=== PATIENT | female | born 1945 | race Caucasian/White ===

== ENCOUNTER 2017-01-24 10:23 | Inpatient (IN) | payer MEDICARE, OTHER ==
[~2017-01-24] VITALS: Ht 168.9 cm; Wt 98.2 kg
[2017-01-24] VITALS (12 sets, daily range): BP systolic 137–169; BP diastolic 61–83; PULSE 65–82; RESP 12–18; O2SAT 90–100
--- NOTE | 2017-01-24 07:33 | PCM.HPANE ---
Patient Data Date of Service: Jan 24, 2017 Surgeon Admitting Provider: Attending Provider:Serge Keys MD Primary Care Physician:Reanna Fung MD Other Provider:Miguel Ortiz Anesthesia Reason for Visit Right Knee Arthritis Ht/WT & BMI Height (Feet): 5 Height (Inches): 6.00 Weight (Kilograms): 99.790 Body Mass Index 35.00 Allergies Coded Allergies: Tetracyclines (Verified Allergy, Severe, rash, 01/24/17) methylprednisolone (Verified Allergy, Unknown, Palpatations, 01/24/17) Uncoded Allergies: MASTISOL (Adverse Reaction, Severe, skin sloughing- quite severe per patient, 01/18/17) ALSO ALCOHOL,GUM MASTIC INCLUDED IN MASTISOL Past Anesthesia History Anesthesia History: Denies:: Abnormal Airway, Anesthesia Reactions, Difficult Intubation, Fam Anesthesia Reaction, Fam Malignant Hypertherm, Malignant Hyperthermia Diabetes History Hx Diabetes?: No MRSA MRSA: No Medications Hypertension Medication: Yes (DIOVAN, hydrolazine) Home Meds Incl Beta Luigi: No Reported Medications Hydralazine 10 Mg [id number] Mg PO BID Ref 0 01/23/17 Vitamin K2 40 Mcg [id number] Mcg PO DAILY 11/19/16 [vitamin d2] No Conflict Check50,000 Unit WEEKLY 11/19/16 Multivitamin (Multi Vitamin Daily)1 Each Tablet1 Each PO DAILY 30 Days Ref 0 11/19/16 Valsartan (Diovan)160 Mg [id number] Mg PO BID 30 Days Ref 0 11/19/16 Calcium Carb/Magnesium Cmb #10 (Venkata-Mag Tablet Chewable)1 Each Tab.chew1 Each PO DAILY 11/19/16 Discontinued Reported Medications [place]-3 Fatty Acids/Fish Oil ([place] 3 Fish Oil Softgel)1 Each Capsule.dr1 Each PO DAILY 11/19/16 Hydralazine 10 Mg [id number] Mg PO BID Ref 0 11/23/16 [magnesium] No Conflict CheckUnknown Dose DAILY 11/19/16 History History of ENT Problems?: Yes HEENT History: Positive for:: Cataracts (S/P LT EYE PROCEDURE) Denies:: Abnormal Airway Difficult Intubation Dysphagia Glaucoma Hearing Problem Sinus Problem TMJ Denture Type: None Teeth Condition: Within Normal Limits Hx of Heart Problems?: Yes Cardiovascular History: Positive for:: Hypertension Denies:: AICD Abdominal Aortic Aneurism Atrial Fibrillation Chest Pain Coronary Artery Disease Edema Heart Murmur Irregular Heartbeat Pacemaker Peripheral Vascular Rheumatic Fever Hx of Respiratory Problem?: Yes Respiratory History: Positive for:: Asthma (as child- not currently a problem) Denies:: COPD Emphysema Hemoptysis Oxygen Administration Pneumonia Pulmonary Embolism Tuberculosis Use of C-PAP Machine (JACK+ uses sleep mouth guard) Use of Inhalers / NEBS Hx Neurologic Problems?: No Neurological History: Denies:: Alzheimer's Disease CVA Dementia Dizziness Headaches Multiple Sclerosis Parkinson's Disease Seizures TIA Hx of GI Problems?: No Hx of Problems?: No Genitourinary History: Denies:: Kidney Stones Urinary Tract Infection Female Hx: Denies:: Currently (post menopausal ) Problems with Breasts? Skin History: Denies:: History Skin Disorders? Pressure Ulcers Hx Musculoskeletal Problems?: Yes Musculoskeletal History: Positive for:: Back Injury Degenerative Joint Musculoskeletal Trauma (right knee current admission problem) Osteoarthritis (OSTEOPENIA RT KNEE=CURRENT PROBLEM) Denies:: Fibromyalgia Joint Replacement Myasthenia Gravis Systemic Lupus Hx of Psycho/Social Problems?: No Psycho Social History: Denies:: Anxiety Bipolar Disorder Hx Depression Hx Surgeries?: Yes (spinal fusion, parathyroidectomy, cataract) Hx Any Other Health Problems?: Yes Other History: Positive for:: Endocrine Disease Thyroid Disease (hx of parathyroidectomy) Denies:: Cancer Hospitalization (2011 spinal surgery) History Blood Transfusions: Positive for:: Accept Blood Products? Denies:: Blood Transfusions Hx Diabetes: No Hx Alcohol Use: NoHx Substance Use: No Smoking Status: Never Smoker Have You Smoked inLast 12 mo: No Stop/Bang S-Snoring: Do You Snore Loudly: Yes T-Tired: feel tired, fatigued: No O-Obsered: Observed not breath: No P-Blood Pressure: treated: Yes B- Body Mass Index > 35 kg/m2: Yes A- Age over 50: Yes N- Neck Large Circumference: No G- Gender Male: No JACK Total Score: 4 JACK Risk Assessment: High Risk, =/>3 Yes Risk Assessment Category Category 1A: Patient has history of documented sleep apnea, and HAS NOT received any narcotic, sedative or anesthesia administration during this stay. Category 1B: Patient has history of documented sleep apnea, and HAS received any narcotic , sedative or anesthesia administration during this stay Category 2: Patient has SUSPECTED Obstructive Sleep Apnea, and HAS received any narcotic , sedative or anesthesia administration during this stay. Category 3: Patient has SUSPECTED Obstructive Sleep Apnea and HAS NOT received narcotic, sedative or anesthesia administration during this stay. Category 4: Outpatient in Procedural Areas with known sleep apnea or who screen positive for High Risk via the STOP/BANG questionnaire. Exam Exam General Appearance: Alert, Oriented X3, Cooperative, No Acute Distress HEENT/AIRWAY: MP 2 Lungs: Clear to Auscultation, Normal Air Movement Heart: Exam Unremarkable, Regular Rate/Rhythm, No Murmurs/Rubs/Gallops Additional Information Morbid obesity Plan Impression Patient chart reviewed, patient interviewed and anesthestic plan with risks, benefits, and alternatives discussed, and informed consent obtained. NPO per Anesth. Guidelines: Yes ASA Physical Status: ASA3 Severe Disease Anesthetic Plan: GA Bene/Risks/Altern/Consents: Yes HP Complete Prior to Induction: Yes Roberth Barreto MD Jan 24, 2017 07:33 Mario Arriaga DO Jan 24, 2017 11:10
[~2017-01-24 10:23] MED LIST: Bupivacaine Liposome 1.3% 20 mL Inj INFILTRATE ONE; Bupivacaine Liposome 1.3% 20 mL Inj INFILTRATE SCH; CALC-714 PO; CeFAZolin Inj 2 GM in IV Premix 1 EACH IV ONE; CeFAZolin Inj 2 GM in IV Premix 1 EACH IV SCH; HYDR-3938 PO; HYDROmorphone 1 mg/mL Inj ONE; Ketamine 10 mg/mL 20 mL Inj ONE; Lactated Ringer's 1,000 ML IV ONE; Lactated Ringer's 1,000 ML IV SCH; MULT-1018 PO; OMEG1CAP25 PO; Phenylephrine/NS 100 mCg/mL 10 mL Syringe IVPUSH ONE; Propofol 10,000 mCg/mL 20 mL Inj ONE; Tranexamic Acid 100 mg/mL 10 mL Inj IV ONE; VALS160T2 PO; VITA40TA PO; Vancomycin Inj 1,500 MG in 0.9% Sodium Chloride 500 ML IV ONE; Vancomycin Inj 1,500 MG in 0.9% Sodium Chloride 500 ML IV SCH; fentaNYL-PF 50 mCg/mL 2 mL Inj ONE; vitamin d2
[2017-01-24] MEDS ORDERED: Lactated Ringer's 1,000 ML IV ONE ×2 (10:45→15:45)
[2017-01-24] MEDS ORDERED: CeFAZolin 2 Gm/50 mL D5W Duplex Bag IV ONE (10:58)
[2017-01-24] MEDS ORDERED: Tranexamic Acid 100 mg/mL 10 mL Inj ONE ×2 (11:49→11:52)
[2017-01-24] MEDS ORDERED: 0.9% Sodium Chloride 100 ML ONE (11:52)
[2017-01-24] MEDS ORDERED: Bupivacaine Liposome 1.3% 20 mL Inj ONE (11:53)
[2017-01-24] MEDS ORDERED: Bupivacaine-MPF 0.25% 30 mL Inj INFILTRATE ONE ×2 (13:50→13:51)
[2017-01-24] MEDS ORDERED: Bupivacaine Liposome 1.3% 20 mL Inj INFILTRATE ONE (13:51)
[2017-01-24] MEDS ORDERED: Atropine 0.4 mg/mL Inj IVPUSH PRN (13:55)
[2017-01-24] MEDS ORDERED: Lactated Ringer's 500 ML IV PRN (13:55)
[2017-01-24] MEDS ORDERED: Labetalol 5 mg/mL 20 mL Inj IV PRN (13:55)
[2017-01-24] MEDS ORDERED: Lactated Ringer's 1,000 ML IV SCH (13:55)
[2017-01-24] MEDS ORDERED: MetoCLOpramide 5 mg/mL 2 mL Inj IVPUSH PRN ×2 (13:55→16:25)
[2017-01-24] MEDS ORDERED: Ondansetron 2 mg/mL 2 mL Inj IVPUSH PRN ×2 (13:55→16:25)
[2017-01-24] MEDS ORDERED: Phenylephrine 10,000 mCg/mL Inj IVPUSH PRN (13:55)
[2017-01-24] MEDS ORDERED: fentaNYL-PF 50 mCg/mL 2 mL Inj IVPUSH PRN (13:55)
[2017-01-24] MEDS ORDERED: EPHEDrine Sulfate 50 mg/mL Inj IVPUSH PRN (13:55)
[2017-01-24] MEDS: HYDROmorphone 1 mg/mL Inj IVPUSH PRN ×2 (14:50→15:10)
--- NOTE | 2017-01-24 14:58 | DRSVH ---
PROCEDURE: X-RAY RIGHT KNEE, ONE OR TWO VIEWS ([id number]) INDICATIONS: CHECK ALIGNMENT TECHNIQUE: 2 view(s) of the knee acquired. COMPARISON: None. FINDINGS: Bones: Patient is status post knee joint arthroplasty. Hardware components are in expected position s. Visualized bony structures are intact. Soft tissues: Overlying postoperative changes are noted. IMPRESSION: Expected post surgical changes with right total knee arthroplasty. Dictated by: Livier Grant M.D. on 01/24/2017 at 14:56 Approved by: Livier Grant M.D. on 01/24/2017 at 14:56
--- NOTE | 2017-01-24 15:06 | OP ---
[address] [address] OPERATIVE REPORT PATIENT: RENETTA MARTIN : 1945 MR#: [id number] ADMIT: 01/24/2017 JOB ID: [id number] DATE OF SURGERY: 01/24/2017 PREOPERATIVE DIAGNOSIS(ES): Advanced osteoarthritis, right knee. POSTOPERATIVE DIAGNOSIS(ES): Advanced osteoarthritis, right knee. PROCEDURE: Total knee arthroplasty. SURGEON: Serge Keys M.D. IT NETWORK ENGINEER: Jyoti Castro PA-C. Edge Cutting Machine Operator required due to the complexity of the operation. INDICATIONS: This woman has had severe progressive osteoarthritis symptoms uncontrolled by conservative treatment techniques. She elects for a total knee arthroplasty. She understands and accepts the potential for risks and complications, which include but is not limited to infection, thromboembolic, neurovascular events, as well as potential for implant failure. DESCRIPTION OF PROCEDURE: The patient was prepped and draped in the usual sterile fashion. An anteromedial approach was made in the knee. The patella was subluxed laterally, cut transversely, sized to a 32. Drill holes were made. The patella protection plate was utilized. Drill hole was placed in the distal femur and a 5 degree valgus distal femoral cut was made. The knee was sized to a 6 chamfer cutting block, fixed in appropriate position, rotation and drill holes and chamfer cuts were made. The tibia was cut with the extramedullary tool. Bone fragment was removed. All meniscal tissue and osteophytes were carefully removed from the knee. The tibia sized to an E provisional placed in appropriate position, rotation and drill and punch were utilized. Trial reduction was performed and a 13 mm polyethylene was chosen. Wounds were irrigated with sterile irrigant. Pressurized lavage was utilized followed by pressurized cementation of the components. Excess cement removed during the curing process. Final construct assembled. Tourniquet was let down. Hemostasis achieved. Deep Hemovac drain was left. Deep closure with #2 Quill deep followed by a 2-0 Vicryl and a 3-0 intracuticular stitch. Steri-Strips were utilized. Sterile dressing was placed. The patient was returned to the recovery room in stable condition. She tolerated the procedure well. There were no complications. Standard postoperative plan recommended.
--- NOTE | 2017-01-24 15:49 | NUR ---
Admission Patient arrived from surgery to room 1021 at 1550hrs. patient A&Ox3, c/o mild posterior right knee pain 3/10 stating tolerable. denies N/V, dizziness, CP/SOB. pedal pulse present, sensation intact. continue to monitor per protocol
[2017-01-24] MEDS ORDERED: hydrOXYzine Inj 50 MG/1 mL SDV IM PRN (16:25)
[2017-01-24] MEDS ORDERED: diphenhydrAMINE 25 mg Capsule PO PRN (16:25)
[2017-01-24] MEDS ORDERED: Alum-Mag Hydrox-Simeth 30 mL Suspension PO PRN (16:25)
[2017-01-24] MEDS ORDERED: hydrOXYzine Inj 25 MG/1 mL SDV IM PRN (17:02)
[2017-01-24] MEDS ORDERED: Magnesium Hydroxide 10 mL Oral Concentration PO PRN (17:10)
[2017-01-24] MEDS ORDERED: Sodium Biphos-Phos 133 mL Enema RECTAL PRN (17:10)
[2017-01-24] MEDS: Lactated Ringer's 1,000 ML IV SCH (17:15)
--- NOTE | 2017-01-24 19:51 | PCM.ANEP1 ---
Post Anesthesia PACU Phase 1 Assessment Date of Service: Jan 24, 2017 Vital Signs Vital Signs Date Time Temp Pulse Resp B/P Pulse Ox O2 Delivery O2 Flow Rate FiO2 01/24/17 16:00 Supplement Oxygen 01/24/17 15:59 36.6 82 18 158/80 98 Nasal Cannula 2.00 01/24/17 15:40 81 14 166/83 97 Nasal Cannula 2 01/24/17 15:30 36.8 82 18 161/79 98 Nasal Cannula 2 01/24/17 15:19 79 13 150/76 96 Nasal Cannula 2 01/24/17 15:05 78 14 155/76 97 Nasal Cannula 2 01/24/17 15:00 75 12 153/76 95 Nasal Cannula 2 01/24/17 14:55 68 14 143/70 90 Room Air 01/24/17 14:50 65 15 141/61 98 Room Air 01/24/17 14:45 74 17 140/69 100 Simple Mask 8 01/24/17 14:38 36.8 82 14 137/74 100 Simple Mask 8 Anesthetic Administered: GA, Regional Block Level of Alertness: Awake, talking AVILES's with Equal Strength: Yes Pain: Yes Nausea or Vomiting: No CV Function & Hydration Stable: Yes Airway Device: Oxygen Delivery: Room Air Lungs: Clear to Auscultation, Normal Air Movement Summary Sensorimotor blockade c/w FNB PACU Phase 2 Assessment Patient Instructions Provided: N/A Mario Arriaga DO Jan 24, 2017 19:51
[2017-01-24] MEDS: CeFAZolin 2 Gm/50 mL D5W IV Premix IV SCH (19:54)
[2017-01-24] MEDS: Ketorolac 15 mg/mL Inj IVPUSH SCH (20:12)
[2017-01-24] MEDS ORDERED: Vancomycin Inj 1,500 MG in 0.9% Sodium Chloride 500 ML IV ONE (23:00)
[2017-01-25 00:30] VITALS: BP 157/81; PULSE 95; RESP 16; O2SAT 98
[2017-01-25] MEDS: Ketorolac 15 mg/mL Inj IVPUSH SCH ×2 (03:37→09:57)
[2017-01-25] MEDS: CeFAZolin 2 Gm/50 mL D5W IV Premix IV SCH (03:38)
--- NOTE | 2017-01-25 05:15 | NUR ---
R leg sensation Pt states sensation in toes and increase in ankle mobility, block still preventing pain and scheduled Toradol and PRN APAP given for breakthrough pain. Up to BSC with SBA voiding independently multiple times this shift. LR infusing at 60 ml/h until AM per MD note. PT is lethargic but tolerating PO intake well. 2L nc and oral airway device in place, SaO2 99. No chest pain or SOB. Care continues
[2017-01-25 05:29] LABS: BASOPHILS % (AUTO) 0.1 % (0-3); EOSINOPHILS % (AUTO) 0.3 % (0-5); MONOCYTES % (AUTO) 8.8 % (4-12); Mean Corpuscular Hemoglobin 30.3 pg (27.0-35.0); Mean Corpuscular Volume 90.7 fL (81-100); NEUTROPHILS % (AUTO) 81.5 % (40-74); Platelet Count 171 bil/L (150-400)
--- NOTE | 2017-01-25 06:50 | PCM.PNORTH ---
Subjective Date of Service: Jan 25, 2017 Visit Information: Reason for Visit Right Knee Arthritis Surgery/Surgery Date R TKA 01/24/17 Post-Op Day # Date of Admission: Jan 24, 2017 at 15:50 Hospital Day # Subjective Found patient awake and alert and sitting up in bed. No complaints pain at this time. Patient is very talkative and very pleasant and plans to be in charge of her rehabilitation. I have discussed with her participation with formal physical therapy in anticipation of discharge to home tomorrow. Patient feels that she would rather go home on day 3 and I have discussed with her the issues regarding long-term facility and the fact that this is generally not available for elective conditions and that we will work with her to be sure that she is safe and mobile on which everyday she discharges. Patient does indicate she has 6 steps to enter her home but once she is inside home is flat with no other stairs. 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 Postop General: No Shortness of Breath, No Chest Pain Pain Management: PO, IV Push Objective Exam Objective Alert and oriented 3 and pleasant Mood appropriate Calf and thigh are soft and nontender Toe wiggle and sensation are intact at right lower extremity distally Interoperative dressing clean dry and intact Wound drain in place and working. SCDs absent Thigh-high ISHMAEL hose absent Up to bedside commode Vital Signs and I/O Vital Sign - Last Date Time Temp Pulse Resp B/P Pulse Ox O2 Delivery O2 Flow Rate FiO2 01/25/17 00:30 36.4 95 16 157/81 98 Nasal Cannula 2.00 Intake and Output 01/24/17 01/24/17 01/25/17 Cumulative From/Thru 15:00 23:00 07:00 11/19/16 12:38 - 01/25/17 06:22 Intake Total 1050 ml 400 ml 1280 ml 2730 ml Balance 1050 ml 400 ml 1280 ml 2730 ml Intake IV Total 1050 ml 400 ml 1280 ml 2730 ml Lab & Micro Results Laboratory Tests Test 01/25/17 05:12 White Blood Count 10.4th/mm3 (3.8-10.1) Red Blood Count 3.86mil/mm3 (3.90-5.20) Hemoglobin 11.7g/dL (12.0-15.6) Hematocrit 35.0% (35.0-46.0) Mean Corpuscular Volume 90.7fL (81-100) Mean Corpuscular Hemoglobin 30.3pg (27.0-35.0) Mean Corpuscular Hemoglobin Concent 33.4% (32.0-37.0) Red Cell Distribution Width 13.0% (12.3-15.4) Platelet Count 171bil/L (150-400) Neutrophils (%) (Auto) 81.5% (40-74) Lymphocytes (%) (Auto) 9.0% (14-46) Monocytes (%) (Auto) 8.8% (4-12) Eosinophils (%) (Auto) 0.3% (0-5) Basophils (%) (Auto) 0.1% (0-3) Result Diagram: 01/25/17 05 General Appearance: Alert, Oriented X3, Cooperative, No Acute Distress Extremities: No Compartment Syndrom Noted, Thigh & Calf Soft/Nontender Postop Sensory Motor: Distal Motor Intact, Movement in Toes, Distal Sensation Intact SURGICAL WOUND : Drain Location Body Site: Knee Wound Drainage Type: Hemovac Activity: Activity per PT, Ambulate with PT (weightbearing as tolerated on the right lower extremity using front wheeled walker) Catheters: None Assessment & Plan Plan Postop day #1 from right total knee arthroplasty performed on 01/24/[address] Serge Keys Continue weightbearing as tolerated on the right lower extremity using front wheeled walker Continue formal physical therapy for mobility, gait and safety. Patient states she has 6 steps to enter her home and then there are no other steps inside the home. Continue ASA 81 mg EC by mouth twice a day 6 weeks for DVT prophylaxis. Continue by mouth pain medication only and DC IV pain medication as soon as possible. DC Hemovac drain at 24 hours MLP to change dressing at postoperative day #2 Nursing please discontinue IV pain medication and moved to by mouth pain meds as soon as possible. Nursing please fit left lower extremity SCD today and fit right lower extremity tomorrow on postop day 2 after dressing change Nursing please fit left lower extremity SCD today. Follow up in 2 weeks at [facility] orthopedic [facility] on prearranged appointment with mid-level provider for wound check and suture removal Follow-up in 6 weeks at [facility] orthopedic clinic with Dr. Serge Keys with right 2 view knee x-rays on arrival. Anticipate discharge to home on postop day #2, 01/26/2017 with sister as caregiver. VTE Prophylaxis: SCDs (visit left lower extremity SCD today on postoperative day #1), ISHMAEL Hose (left thigh high teds fit today on postop day 1. Right thigh- high Ishmael. On postop day 2 after dressing change), Other (ASA 81 mg EC by mouth twice a day 6 weeks postop for DVT prophylaxis) Fredrick Geiger PA-C Jan 25, 2017 06:50
[2017-01-25 06:52] VITALS: BP 154/73; PULSE 92; RESP 16; O2SAT 97
[2017-01-25 07:36] VITALS: BP 164/96; PULSE 85; RESP 18; O2SAT 99
[2017-01-25] MEDS: Lactated Ringer's 1,000 ML IV SCH (08:50)
--- NOTE | 2017-01-25 09:48 | NUR ---
Prescriptions Contacted Fredrick KIMBALL with the following cook page, per patient request: Patient stated she was supposed to have prescriptions for Vistaril and Percocet already written so her daughter could fill them prior to discharge. I do not see these prescriptions in her chart. Please advise. Thank you. Shikha GARCIA
[2017-01-25 12:00] LABS: APPEARANCE,URINE HAZY (CLEAR,HAZY); COLOR,URINE YELLOW (YELLOW); OCCULT BLOOD,URINE NEGATIVE (NEGATIVE); UROBILINOGEN,URINE NORMAL (NORMAL)
[2017-01-25 12:49] VITALS: BP 151/66; PULSE 87; RESP 18; O2SAT 99
--- NOTE | 2017-01-25 13:52 | NUR ---
Evaluation completed. Please go to "Notes" then click on "Assessments and Notes" (bottom left corner of screen). Then select appropriate discipline tab on top of screen.
--- NOTE | 2017-01-25 14:49 | OP ---
[address] [address] OPERATIVE REPORT PATIENT: RENETTA MARTIN : 1945 MR#: [id number] ADMIT: 01/24/2017 JOB ID: [id number] DATE OF SURGERY: 01/24/2017 SURGEON: Serge Keys MD EXTENSION COURSE COUNSELOR: Jyoti Castro PA-C. Try Out Person required due to the major complexity of operation. PREOPERATIVE DIAGNOSIS(ES): Advanced osteoarthritis, right knee. POSTOPERATIVE DIAGNOSIS(ES): Advanced osteoarthritis, right knee. PROCEDURE: Right total knee arthroplasty. INDICATIONS: This woman has severe progressive osteoarthritis symptoms uncontrolled by conservative treatment. She elects to proceed with a total knee replacement. She understands and accepts the risks for complication, which include but is not limited to infection, thromboembolic, neurovascular events, as well as potential for implant failure. Understanding these, she wishes to proceed. PROCEDURE IN DETAIL: The patient was prepped and draped in usual sterile fashion. Appropriate time-out procedures were followed. An anteromedial approach was made in the knee and the patella was subluxed laterally, cut transversely, sized to a 32. Drill holes were made. The patella protection plate was utilized. Drill hole placed in the distal femur and a 5 degree valgus distal femoral cut was made. The femur was sized to a 6 chamfer cutting block, fixed in appropriate position. Rotation and chamfer cuts were made. All meniscal tissue and osteophytes removed from the knee. The extramedullary tool was utilized to make a proximal tibial cut. The tibia was sized to an 8 component, fixed in appropriate position and rotation. Drill and punch was utilized. Trial reduction was performed and a 13 mm polyethylene was chosen. Lug holes were drilled for the femur. Pressurized lavage was followed by pressurized cementation. Excess cement removed during the curing process. Cut margins injected with Marcaine and Exparel. Tourniquet was let down. Hemostasis was achieved. Deep closure with #2 Quill deep followed by 2-0 Vicryl, 3-0 Vicryl and an intracuticular stitch was utilized. The patient tolerated the procedure well. There were no complications.
[2017-01-25 15:37] VITALS: BP 137/65; PULSE 87; RESP 18; O2SAT 98
[2017-01-25] MEDS: hydrOXYzine Pamoate 25 mg Capsule PO PRN (17:49)
[2017-01-25 20:30] VITALS: BP 146/68; PULSE 88; RESP 16; O2SAT 96
[2017-01-26 01:00] VITALS: BP 171/77; PULSE 87; RESP 16; O2SAT 98
[2017-01-26] MEDS: Lactated Ringer's 1,000 ML IV SCH ×2 (01:30→18:10)
[2017-01-26] MEDS: hydrOXYzine Pamoate 25 mg Capsule PO PRN ×5 (01:35→21:21)
--- NOTE | 2017-01-26 01:57 | NUR ---
Hemovac Hemovac d/c'd as hemovac came apart. Pt. tolerated well. Will continue to monitor.
--- NOTE | 2017-01-26 04:57 | NUR ---
Pain Pt. has reported an increase in pain throughout the night. 2mg IV morphine given at the time. 10 mg Roxicodone PO and 25mg Vistaril PO also given for pain. Pt. eventually fell asleep, and has stayed asleep. Will continue to monitor.
[2017-01-26 05:26] VITALS: BP 163/83; PULSE 89; RESP 16; O2SAT 97
--- NOTE | 2017-01-26 08:31 | PCM.PNORTH ---
Subjective Date of Service: Jan 26, 2017 Visit Information: Reason for Visit Right Knee Arthritis Surgery/Surgery Date R TKA 01/24/17 Post-Op Day # Date of Admission: Jan 24, 2017 at 15:50 Hospital Day # Subjective Patient is found awake this morning and sitting up in bed. Patient indicates she feels that her block wore off last night and that she has had increased pain. This appears to be managed as patient is sitting comfortably and having a comfortable conversation. We have discussed discharged today versus tomorrow and we have discussed patient's lack of participation with formal physical therapy. I have encouraged patient this morning that she must attempt gait with physical therapy and that her discharge depends on this and that she must take advantage of the therapy while it is available to increase her mobility and safety. Patient is concern for her postoperative safety and I have explained to her that we will not discharge her if we feel that she is unsafe for discharge. Patient does state that she feels her pain medication is making her a low "woozy". Postop General: No Shortness of Breath, No Chest Pain, Good Appetite Pain Management: PO Objective Exam Objective Alert and oriented 3 and pleasant Mood appropriate Calf and thigh are soft and nontender Toe wiggle and sensation are intact at right lower extremity distally Interoperative dressing is changed to postoperative type dressing is morning and wound is found to be in good condition with no drainage, no erythema and no focal swelling. Wound drain is absent SCD and ISHMAEL hose are in place at left lower extremity Patient continues Up to bedside commode. No meaningful gait yet with physical therapy Vital Signs and I/O Vital Sign - Last Date Time Temp Pulse Resp B/P Pulse Ox O2 Delivery O2 Flow Rate FiO2 01/26/17 05:26 37.1 89 16 163/83 97 Room Air 01/26/17 01:00 2.00 Intake and Output 01/25/17 01/25/17 01/26/17 Cumulative From/Thru 15:00 23:00 07:00 11/19/16 12:38 - 01/26/17 06:58 Intake Total 1237 ml 400 ml 4667 ml Output Total 960 ml 1050 ml 3830 ml Balance 277 ml -650 ml 837 ml Intake Oral 1237 ml 400 ml 1937 ml IV Total 2730 ml Output Urine Total 900 ml 1050 ml 3650 ml Drainage Total 60 ml 180 ml # Bowel Movements 0 0 Lab & Micro Results Laboratory Tests Test 9/29/17 10:41 Urine Color Yellow (YELLOW) Urine Appearance Hazy (CLEAR,HAZY) Urine pH 6.0 (5.0-8.0) Urine Specific [place] 1.005 (1.003-1.035) Urine Protein Negativemg/dL (NEG,TRACE) Urine Glucose (UA) Negativemg/dL (NEGATIVE) Urine Ketones Negativemg/dL (NEGATIVE) Urine Occult Blood Negative (NEGATIVE) Urine Nitrite Negative (NEGATIVE) Urine Bilirubin Negative (NEGATIVE) Urine Urobilinogen Normalmg/dL (NORMAL) Urine Leukocyte Esterase Negative (NEGATIVE) Urine RBC 0-2/hpf (0-2) Urine WBC 0-5/hpf (0-5) Urine Epithelial Cells Occasional/hpf (NONE-MOD) Urine Crystals None seen (NONE SEEN) Urine Bacteria None/hpf (NONE-FEW) Urine Hyaline Casts None/lpf (NONE) Urine Granular Casts None seen (NONE SEEN) Urine Waxy Casts None seen (NONE SEEN) Urine Red Blood Cell Casts None seen (NONE SEEN) Urine White Blood Cell Casts None seen (NONE SEEN) Urine Mucus None seen (None Seen) Urine Trichomonas None seen (NONE SEEN) Urine Yeast None (NONE SEEN) Urinalysis Comment None Urine Culture Reflexed Not indicated Result Diagram: 01/25/17 0512 General Appearance: Alert, Oriented X3, Cooperative, No Acute Distress Extremities: No Compartment Syndrom Noted, Thigh & Calf Soft/Nontender Postop Sensory Motor: Distal Motor Intact, Movement in Toes, Distal Sensation Intact SURGICAL WOUND : Drain Location Body Site: Knee Wound Drainage Type: Hemovac Activity: Activity per PT, Ambulate with PT (weightbearing as tolerated on the right lower extremity using front wheeled walker) Catheters: None Assessment & Plan Plan Postop day #2 from right total knee arthroplasty performed on 01/24/[address] Serge Keys Continue weightbearing as tolerated on the right lower extremity using front wheeled walker. Continue formal physical therapy for mobility, gait and safety. Patient states she has 6 steps to enter her home and then there are no other steps inside the home. Patient has arranged outpatient physical therapy to begin as soon as possible after discharge Continue ASA 81 mg EC by mouth twice a day 6 weeks for DVT prophylaxis. Continue by mouth pain medication only. DC Hemovac drain at 24 hours MLP to change dressing at postoperative day #2 Keep wound and dressing clean dry and intact. Wound may be showered after 3 days if there has been no drainage for 24 hours. Wound should not be soaked under water in a hot tub, bath tub or pool. A light dressing may be left in place and Steri-Strips should be left in place until they fall off on their own. Ice and elevate as needed. Nursing please move patient to Percocet which has been ordered today. Nursing please provide patient with bilateral ISHMAEL hose is ordered yesterday. Patient may use these or her own personel compression hose Follow up in 2 weeks at [facility] orthopedic clinic on prearranged appointment with mid-level provider for wound check and suture removal Follow-up in 6 weeks at [facility] orthopedic clinic with Dr. Serge Keys with right 2 view knee x-rays on arrival. Discharge paperwork will be processed today and a qualifier has been added to the discharge order to discharge when patient is safe and multiple to manage home ambulation and stairs at home per physical therapy. Anticipate discharge to home on postop day #2, 01/26/2017 or on postop day #3, 01/27/2017 when patient is determined to be mobile and safe per physical therapy. Patient will have sister as caregiver. VTE Prophylaxis: SCDs (visit left lower extremity SCD today on postoperative day #1), ISHMAEL Hose (left thigh high teds fit today on postop day 1. Right thigh- high Ishmael. On postop day 2 after dressing change), Other (ASA 81 mg EC by mouth twice a day 6 weeks postop for DVT prophylaxis) Fredrick Geiger PA-C Jan 26, 2017 08:31
--- NOTE | 2017-01-26 08:37 | PCM.DIORTH ---
Ortho Discharge Instruction Date of Service: Jan 26, 2017 Dates of Hospitalization Date of Hospital Admission Jan 24, 2017 at 15:50 Providers Admitting Physician: Serge Keys MD Primary Care Physician: Reanna Fung MD Attending Physician: Serge Keys MD Diet Discharge Diet: Diabetic Activity Discharge Activity-General: Try not to overdue, Be up and about, Balance rest and activity, Ice incision 3-5 time/day for 20min, Activity as pain allows, Activity as energy allows, No driving while taking narcotic Right Lower Extremity: Weight Bearing as tolerated Discharge Assist Device: Front Wheeled Walker Dressing and Incisional Care Discharge Dressing Care: Keep dressing clean, dry & intact, Allow Steri Stripes to fall off, Change soiled dressing Discharge Hygiene: May shower after (patient may shower after 3 days postop if wound is clean and dry for 24 hours.), DO NOT soak incision under water, NO bathtub, hot tub or whirlpool Additional Instructions Discharge Instructions Postop day #2 from right total knee arthroplasty performed on 01/24/[address] Serge Keys Continue weightbearing as tolerated on the right lower extremity using front wheeled walker. Continue formal physical therapy for mobility, gait and safety. Patient states she has 6 steps to enter her home and then there are no other steps inside the home. Patient has arranged outpatient physical therapy to begin as soon as possible after discharge Continue ASA 81 mg EC by mouth twice a day 6 weeks for DVT prophylaxis. Continue by mouth pain medication only. DC Hemovac drain at 24 hours MLP to change dressing at postoperative day #2 Keep wound and dressing clean dry and intact. Wound may be showered after 3 days if there has been no drainage for 24 hours. Wound should not be soaked under water in a hot tub, bath tub or pool. A light dressing may be left in place and Steri-Strips should be left in place until they fall off on their own. Ice and elevate as needed. Nursing please move patient to Percocet which has been ordered today. Nursing please provide patient with bilateral PREM hose is ordered yesterday. Patient may use these or her own personel compression hose Follow up in 2 weeks at [facility] orthopedic clinic on prearranged appointment with mid-level provider for wound check and suture removal Follow-up in 6 weeks at [facility] orthopedic clinic with Dr. Serge Keys with right 2 view knee x-rays on arrival. Discharge paperwork will be processed today and a qualifier has been added to the discharge order to discharge when patient is safe and multiple to manage home ambulation and stairs at home per physical therapy. Anticipate discharge to home on postop day #2, 01/26/2017 or on postop day #3, 01/27/2017 when patient is determined to be mobile and safe per physical therapy. Patient will have sister as caregiver. Follow Up Plan Follow Up Plan Follow-up in 2 weeks at [facility] orthopedic clinic with mid-level provider for wound check. Follow-up Provider (F9): Serge Keys MD Follow-up appointment: Weeks (follow-up in 2 weeks on prearranged appointment) Call your provider for: Fever, Chills, Shortness of breath, Vomitting, Drainage at incision Fredrick Geiger PA-C Jan 26, 2017 08:37
[2017-01-26] MEDS ORDERED: ASPI81TA3 PO (08:43)
[2017-01-26] MEDS ORDERED: DOCU-41 PO (08:43)
[2017-01-26] MEDS ORDERED: OXYC1TAB24 PO (08:43)
[2017-01-26] MEDS ORDERED: HYDR-3797 PO (08:43)
[2017-01-26 14:28] VITALS: BP 174/75; PULSE 88; RESP 16; O2SAT 96
[2017-01-26] MEDS ORDERED: .Epic Conversion Completed XX PRN (14:35)
--- NOTE | 2017-01-26 16:00 | NUR ---
Pain Patient continues to have some pain to the right knee this shift. Patient states that pain is kept at a tolerable level with ordered pain medications. Care is ongoing.
--- NOTE | 2017-01-26 17:00 | NUR ---
Social Work: Initial Assessment/Readiness for Discharge/Multidisciplinary Rounds D: EMR reviewed. Please see initial assessment for further information. Pt is a 71 y/o female [place] - readmit risk score of 2 - for elective right knee surgery per H&P. Pt's insurance is Medicare and [facility]. PCP is Reanna Fung MD. SW met with pt at bedside to conduct initial assessment. Pt was alert and oriented x3. SW explained role, wrote phone number on board in room, provided [facility] Discharge Planning Checklist, and encouraged pt to call with any discharge planning questions. Pt does not have VA benefits. Pt has LTC insurance through [employer]. Pt has no hx with HH or a SNF. Pt owns a FWW and 4WW which she uses and will use for ambulation after surgery. Pt is independent with ADLs. Pt drives. Pt declined DPOA/advanced directive ppw at bedside. Pt gave verbal consent to contact Sister Raya Carmona [phone] for discharge planning. Pt lives at home with her sister in a single-story house with 4 stairs to enter in [place]. Pt discussed in multidisciplinary rounds and is not medically stable for discharge home today, anticipate tomorrow. PT currently recommending HH PT or oupt PT. SW to request order from MD. No MD orders at this time. SW discussed PT recommendations with pt and that LAURA will follow-up with MD regarding medical necessity. Pt agreeable. SW asked if pt had any concerns regarding discharge - pt does not have concerns. Pt's sister will provide transport home tomorrow via POV. SW asked if pt had any questions regarding discharge, pt declined. SW encouraged pt to contact SW if questions arise. Pt agreeable for SW to follow-up with pt tomorrow regarding HH. A: Pt who is independent at baseline and has capacity for self-care. P: Pt anticipated to discharge home tomorrow with sister to transport via POV. PT recommending HH PT or outpt PT as of 01/26. LAURA paged MD Keys regarding PT recommendations. SW to await MD orders to follow-up with pt regarding HH. Pt agreeable. SW will continue to follow. DAV Farrell Addendum: 01/26/17 at 1705 by JEREMIAS MIGUEL SS Amended: Links added.
[2017-01-26 21:42] VITALS: BP 130/77; PULSE 81; RESP 18; O2SAT 95
== END 2017-01-27 01:29 | disposition admitted as inpatient to this hospital (09) | DRG 470 ==
LOC: SAS 10:23 → OSC 15:50
PROVIDERS: ADMIT Orthopaedic Surgery; ATTEND Orthopaedic Surgery
PROC: 0SRC0J9 Replacement of Right Knee Joint with Synthetic Substitute, Cemented, Open Approach (ICD-10-PCS; principal; 2017-01-24 12:30)
DX: M17.11 Unilateral primary osteoarthritis, right knee (principal)